=== PATIENT | female | born 1975 | race African-American/Black ===

== ENCOUNTER 2017-07-14 15:51 | Emergency (ER) | payer OTHER ==
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
[2017-07-14] MEDS ORDERED: IBUPROFEN 800 MG TABLET PO ONE (18:37)
[2017-07-14] MEDS ORDERED: METHOCARBAMOL 750 MG TABLET PO ONE (18:37)
[2017-07-14 19:16] VITALS: BP 141/97
== END 2017-07-14 19:33 | disposition home or self-care (01) ==
LOC: ER 15:51
DX: S16.1XXA Strain of muscle, fascia and tendon at neck level, initial encounter (principal); S46.911A Strain of unspecified muscle, fascia and tendon at shoulder and upper arm level, right arm, initial encounter; M54.2 Cervicalgia; R03.0 Elevated blood-pressure reading, without diagnosis of hypertension; V89.2XXA Person injured in unspecified motor-vehicle accident, traffic, initial encounter
CPT/HCPCS: 71046; 72050; 99284